=== PATIENT | male | born 1960 | race Asian ===

== ENCOUNTER 2025-04-23 07:51 | Outpatient (CLI) | payer MEDICARE, MEDICAID | END 2025-04-23 07:52 | disposition home or self-care (01) | LOC: BICMAMMO 07:51 | PROVIDERS: ATTEND Student in an Organized Health Care Education/Training Program | DX: M81.0 Age-related osteoporosis without current pathological fracture (principal); M05.9 Rheumatoid arthritis with rheumatoid factor, unspecified | CPT/HCPCS: 77080 ==